=== PATIENT | male | born 1940 | race Caucasian/White ===

== ENCOUNTER 2025-06-04 18:50 | Emergency (ER) | payer MEDICARE, OTHER, SELFPAY ==
[2025-06-04] VITALS (9 sets, daily range): BP systolic 103–110; BP diastolic 63–73; PULSE 59–73; RESP 16–37; TEMP 36.4; O2SAT 90–96; BMI 24.0
--- NOTE | 2025-06-04 19:02 | ED_ITS ---
HPI - Fall General Chief Complaint: Fall Stated Complaint: Fall Time Seen by Provider: 06/04/25 19:01 History of Present Illness HPI Narrative: 84-year-old male returned with family from vacation, return flight into [place] earlier today, had 3 glasses of wine earlier this evening, nearly passed out falling into the arms of nearby family member. Did not fall to the ground. No focal neuro findings. No shaking or incontinence symptoms. No history of seizures known. No history of strokes known. Drinks alcohol regularly, multiple drinks each evening per family members at bedside. Related Data Allergies Allergy/AdvReac Type Severity Reaction Status Date / Time Penicillins Allergy Verified 06/04/25 18:57 Exam Narrative Exam Narrative: GENERAL: Well-developed patient, in mild distress. Alcohol on breath, slight slurred speech HEAD: Atraumatic. Normocephalic. EYES: Pupils equal round and reactive. Extraocular motions intact. No scleral icterus. No injection or drainage. ENT: Nose without bleeding, purulent drainage. Throat without erythema, tonsillar hypertrophy or exudate. Airway patent. NECK: Trachea midline. Non tender CARDIOVASCULAR: Regular rate and rhythm without murmurs, gallops, or rubs. RESPIRATORY: Clear to auscultation. Breath sounds equal bilaterally. No wheezes, rales, or rhonchi. GASTROINTESTINAL: Abdomen soft, non-tender, nondistended. EXTREMITIES: No edema or joint tenderness. BACK: Nontender without deformity or crepitance. No flank tenderness. NEURO: AOx3. Motor functions grossly nonfocal. SKIN: No rash or erythema of visible areas Initial Vital Signs Initial Vital Signs: Vital Signs Pulse Oximetry 92 06/04/25 18:55 Course Orders Ordered: ED Orders 06/04/25 19:00 Complete Blood Count AUTO DIFF Stat Comprehensive Metabolic Panel Stat D Dimer Stat Ethanol (ETOH) Stat Lipase Stat Magnesium Stat NT-proBNP (BNP-Adult 18+) Stat Troponin I Stat 06/04/25 19:16 XR chest 1V Stat EKG-12 Lead Stat 06/04/25 19:19 CT cervical spine wo con Stat CT head/brain wo con Stat 06/04/25 19:39 CT angio chest abdomen pelvis Stat Discontinued Medications Sodium Chloride (Normal Saline 0.9%) 1,000 mls @ 1,000 mls/hr IV BOLUS ONE Stop: 06/04/25 20:39 Last Infusion: 06/04/25 21:53 Dose: Infused Documented By: Admin: 06/04/25 19:54 Dose: 1,000 mls/hr Documented By: SHRUTHI Vital Signs Vital signs: Vital Signs - 8 hr 06/04/25 18:55 06/04/25 18:56 06/04/25 18:56 Temperature 97.5 F L Pulse Rate 72 Respiratory Rate 16 Blood Pressure 110/73 110/73 Pulse Oximetry 92 93 Oxygen Delivery Method Room Air 06/04/25 18:56 06/04/25 19:00 06/04/25 19:00 Temperature Pulse Rate 68 63 Respiratory Rate 18 Blood Pressure 108/71 Pulse Oximetry 91 90 L Oxygen Delivery Method 06/04/25 19:30 06/04/25 19:30 06/04/25 20:00 Temperature Pulse Rate 63 59 L Respiratory Rate 32 H 30 H Blood Pressure 103/68 Pulse Oximetry 93 90 L Oxygen Delivery Method 06/04/25 20:30 06/04/25 21:00 06/04/25 21:30 Temperature Pulse Rate 73 62 65 Respiratory Rate 37 H 18 26 H Blood Pressure Pulse Oximetry 90 L 91 92 Oxygen Delivery Method 06/04/25 21:58 Temperature Pulse Rate 70 Respiratory Rate 18 Blood Pressure 110/63 Pulse Oximetry 96 Oxygen Delivery Method Room Air MDM - Fall Lab Data Attestation: I reviewed the patient's lab results. Lab results narrative: White blood cell count 6100, hemoglobin 15.9, platelets adequate. Glucose 103. Normal renal function, electrolytes. Serum CO2 15 decreased. Liver functions and lipase normal. Blood alcohol level 263 noted from 7:00 p.m. draw. Troponin negative/unmeasurable. 06/04/25 19:00 06/04/25 19:00 Labs: Lab Results 06/04/25 Range/Units 19:00 WBC 6.1 (4.5-11.0) X10^3/uL RBC 4.82 (4.5-5.9) X10^6/uL Hgb 15.9 (13.5-17.5) g/dL Hct 47.1 (41-53) % MCV 97.7 (80-100) fL MCH 33.0 (26-34) PG MCHC 33.8 (30-36) % RDW 14.4 (11.6-14.8) % Plt Count 180 (150-400) X10^3/uL Neut % (Auto) 61.0 (50-75) % Lymph % (Auto) 24.8 L (25-40) % [place] % (Auto) 10.5 (3-14) % Eos % (Auto) 3.1 (2-4) % Baso % (Auto) 0.6 (0-2) % Neut # (Auto) 3700 (4594-8555) /uL Lymph # (Auto) 1500 (6977-9893) /uL [place] # (Auto) 600 (0-900) /uL Eos # (Auto) 200 (0-450) /uL Baso # (Auto) 0 (0-100) /uL D-Dimer 297 (<500) ng/ml Sodium 140 (137-145) mmol/L Potassium 4.2 (3.4-5.1) mmol/L Chloride 109 H (98-107) mmol/L Carbon Dioxide 15 L (22-32) mmol/L BUN 18 (9-20) mg/dL Creatinine 1.01 (0.66-1.25) mg/dL Estimated GFR > 60 (>60) mL/min BUN/Creatinine Ratio 17.8 (6-22) Glucose 103 H (70-99) mg/dL Calcium 9.3 (8.4-10.2) mg/dL Magnesium 2.1 (1.6-2.3) mg/dL Total Bilirubin 1.1 (0.2-1.3) mg/dL AST 31 (17-59) IU/L ALT 25 (<50) IU/L Alkaline Phosphatase 71 (38-126) U/L Troponin I < 0.012 (0.01-0.034) ng/mL NT-Pro-B Natriuret Pep 47 (<450) pg/mL Total Protein 7.4 (6.3-8.2) g/dL Albumin 4.3 (3.5-5.0) g/dL Globulin 3.1 (1.7-4.1) g/dL Albumin/Globulin Ratio 1.4 (1.0-2.8) Lipase 85 (23-300) U/L Ethyl Alcohol 263 H (<10) mg/dL Imaging Data Chest x-ray: Radiologist's Impression: [address] [address] XRay Report Signed Patient: Osorio Gerber MR#: [id number] : 1940 Acct:[id number] Age/Sex: 84 / M Date of Service: 06/04/25 Loc: ED Accession Number: [id number] Procedure: XR chest 1V Ordering Provider: Dajuan Curry MD PROCEDURE: XR CHEST 1V INDICATIONS: syncope TECHNIQUE: One view of the chest was acquired. COMPARISON: None. FINDINGS: Surgical changes and devices: None. Lungs and pleura: Lungs are clear. No pleural effusions or pneumothorax. Mediastinum: Mediastinal contours appear normal. Heart size is normal. Bones and chest wall: No suspicious bony lesions. Overlying soft tissues appear unremarkable. IMPRESSION: No acute cardiopulmonary abnormality is seen. Dictated by: Leo Cummings M.D. on 06/04/2025 at 19:48 Approved by: Leo Cummings M.D. on 06/04/2025 at 19:48 CT scan - head: Radiologist's Impression: [place] [address] CT Scan Report Signed Patient: Osorio Gerber MR#: [id number] : 1940 Acct:[id number] Age/Sex: 84 / M Date of Service: 06/04/25 Loc: ED Accession Number: [id number] Procedure: CT head/brain wo con Ordering Provider: Dajuan Curry MD PROCEDURE: CT HEAD/BRAIN WO CON INDICATIONS: syncope, slow speech TECHNIQUE: Noncontrast 4.5 mm thick angled axial sections acquired from the foramen magnum to the vertex, with coronal and sagittal reformats. For radiation dose reduction, the following was used: automated exposure control, adjustment of mA and/or kV according to patient size. COMPARISON: None. FINDINGS: Image quality: Diagnostic. CSF spaces: Basal cisterns are patent. No extra-axial fluid collections. The ventricles are symmetric in size and shape. Brain: No intracranial bleeds or mass effect. There is cerebral volume loss, with resultant ventricular and sulcal prominence. There are periventricular and deep white matter chronic small vessel ischemic changes. There is intracranial internal carotid artery atherosclerosis. Skull and face: Calvarium and visualized facial bones appear intact, without suspicious lesions. Sinuses: Visualized sinuses and mastoids are clear. IMPRESSION: No acute intracranial pathology. Dictated by: Leo Cummings M.D. on 06/04/2025 at 20:15 Approved by: Leo Cummings M.D. on 06/04/2025 at 20:16 CT - cervical spine: Radiologist's Impression: [address] [address] [address] Scan Report Signed Patient: Osorio Gerber MR#: [id number] : 1940 Acct:[id number] Age/Sex: 84 / M Date of Service: 06/04/25 Loc: ED Accession Number: [id number] Procedure: CT cervical spine wo con Ordering Provider: Dajuan Curry MD PROCEDURE: CT CERVICAL SPINE WO CON INDICATIONS: syncope TECHNIQUE: Noncontrast 3 mm thick sections acquired from the skull base to the T4 level. Sagittal and coronal reformats were then constructed. For radiation dose reduction, the following was used: automated exposure control, adjustment of mA and/or kV according to patient size. COMPARISON: None. FINDINGS: Image quality: Excellent. Bones: No fractures or dislocations. Visualized superior ribs are intact. Severe multilevel degenerative disc disease and facet arthropathy. Soft tissues: Prevertebral soft tissues are normal in thickness. No paravertebral hematomas. No apical pneumothoraces. IMPRESSION: No displaced fracture or traumatic subluxation. Dictated by: Aba Saunders M.D. on 06/04/2025 at 20:13 Approved by: Aba Saunders M.D. on 06/04/2025 at 20:16 CT angiogram chest abdomen and pelvis: Radiologist's Impression: Osorio Gerber??84??M??1940 ? Allergy/Adv: Penicillins [address] [address] [address] Scan Report Signed Patient: Osorio Gerber MR#: [id number] : 1940 Acct:[id number] Age/Sex: 84 / M Date of Service: 06/04/25 Loc: ED Accession Number: [id number] Procedure: CT angio chest abdomen pelvis Ordering Provider: Dajuan Curry MD PROCEDURE: CT ANGIO CHEST ABDOMEN PELVIS INDICATIONS: syncope, back pain TECHNIQUE: Precontrast 5 mm thick sections acquired from the lung apices to the iliac crests. After the administration of intravenous contrast, 2.5 mm thick sections again acquired from the lung apices to the iliac crests. Maximum intensity projection (MIP) oblique sagittal and coronal reformats were then acquired. For radiation dose reduction, the following was used: automated exposure control. COMPARISON: None. FINDINGS: Image quality: Diagnostic. AORTA: No aortic aneurysm. No acute aortic syndrome. CHEST: Lower Neck: No enlarged lymph nodes. Thyroid: No thyroid nodules which require sonographic evaluation. Axillae: No enlarged lymph nodes. Chest Wall: Unremarkable. Lungs and Pleura: No pneumothorax or pleural effusions. No consolidation or suspicious nodules. Heart: Heart size is normal. No pericardial effusion. Thoracic Vessels: Pulmonary arteries demonstrate normal size. Mediastinum and [place]: No enlarged lymph nodes. Esophagus: No wall thickening. No hiatal hernia. ABDOMEN: Liver: 1.7 centimeter hyperattenuating lesion at the inferior margin of the liver, possibly a flash filling hemangioma. Additional subcentimeter lesions which are hypoattenuating and too small to characterize. Gallbladder: No radiopaque gallstones or wall thickening. Biliary ducts: No biliary dilation. Pancreas: No ductal dilation. Spleen: Size is within normal limits. Adrenal Glands: No adrenal nodules. Kidneys and Ureters: No hydronephrosis. No solid mass. No complex renal cystic lesion which requires follow up. Stomach and Bowel: Normal colonic caliber, without significant wall thickening. Normal appendix. Peritoneum: No abnormal intraperitoneal fluid. No free air. Ventral Wall: No hernia. Abdominal Nodes: No retroperitoneal or mesenteric adenopathy by size criteria. Vessels: Inferior vena cava is normal in size. PELVIS: Pelvic Organs: Unremarkable. Bladder: Distended. Pelvic Nodes: No enlarged lymph nodes. Miscellaneous: No inguinal hernias are seen. Bones: Severe degenerative changes in the lumbar and cervical spine. No aggressive osseous lesion or fracture. IMPRESSION: No acute abnormality. No aortic aneurysm. Indeterminate liver lesion. Further evaluation with routine MRI with contrast recommended to ensure benignity. Dictated by: Aba Saunders M.D. on 06/04/2025 at 20:38 Approved by: Aba Saunders M.D. on 06/04/2025 at 20:48 ECG Data Attestation: I personally reviewed and interpreted this ECG as follows: Interpretation: 2120, normal sinus rhythm with rate of 60, no obvious ST segment elevation or depression changes. ID 178, QRS 92, QTC 448. MDM Narrative Medical decision making narrative: 84-year-old male with near syncopal episode in context of recent travel from out of [facility] [place] [facility] earlier today. Recent alcohol use, daily alcohol use. No known trauma to head/face, but fell backwards into the arms of nearby family member, altered gait noted. Labs pending. CT head, C-spine. CTA chest abdomen and pelvis ordered. DDx consider alcohol intoxication, could have other causes of near syncopal episode, recent flight travel from out of state noted, consider PE, aortic dissection, ACS, PE, occult sepsis, other. EKG showed sinus rhythm, no obvious ischemic changes. Chest x-ray showed no acute changes, see radiology report. Lab data: White blood cell count 6100, hemoglobin 15.9, platelets adequate. Glucose 103. Normal renal function, electrolytes. Serum CO2 15 decreased. Liver functions and lipase normal. Blood alcohol level 263 noted from 7:00 p.m. draw. Troponin negative/unmeasurable. CT head, no acute changes. See radiology report. CT cervical spine, no acute changes. See radiology report. CT angiogram chest abdomen and pelvis without acute changes. See radiology report. Observed further in the emergency department, able to ambulate. /daughter at bedside thought that they could take him home, single step entry way to daughter's home for , no internal steps to navigate, home help with moving him to bed. Home observation further for now. Discharged home with family. Discharge Plan Departure Patient Disposition: Home Clinical Impression: Near syncope, Alcohol intoxication Instructions: DI for Syncope in Adults (Fainting) Activity Restrictions/Additional Instructions: Near-syncope almost passing out episode, recent alcohol use. Alcohol level [address] scan head, cervical spine, chest, abdomen, pelvis showed no acute changes. EKG and blood testing unrevealing besides elevated alcohol level. Symptoms improved while he is in the emergency department, able to ambulate steadily. Discharged home with family. Encouraged not to drink alcohol. Recheck advised with your regular doctor early next week. Return to this/nearest emergency department for any change worsening symptoms or any concerns prior. Stand Alone Forms: Patient Portal/API
--- NOTE | 2025-06-04 19:16 | DI.RAD.S_ITS ---
PROCEDURE: XR CHEST 1V INDICATIONS: syncope TECHNIQUE: One view of the chest was acquired. COMPARISON: None. FINDINGS: Surgical changes and devices: None. Lungs and pleura: Lungs are clear. No pleural effusions or pneumothorax. Mediastinum: Mediastinal contours appear normal. Heart size is normal. Bones and chest wall: No suspicious bony lesions. Overlying soft tissues appear unremarkable. IMPRESSION: No acute cardiopulmonary abnormality is seen. Dictated by: Leo Cummings M.D. on 06/04/2025 at 19:48 Approved by: Leo Cummings M.D. on 06/04/2025 at 19:48
--- NOTE | 2025-06-04 19:19 | DI.CT.S_ITS ---
PROCEDURE: CT CERVICAL SPINE WO CON INDICATIONS: syncope TECHNIQUE: Noncontrast 3 mm thick sections acquired from the skull base to the T4 level. Sagittal and coronal reformats were then constructed. For radiation dose reduction, the following was used: automated exposure control, adjustment of mA and/or kV according to patient size. COMPARISON: None. FINDINGS: Image quality: Excellent. Bones: No fractures or dislocations. Visualized superior ribs are intact. Severe multilevel degenerative disc disease and facet arthropathy. Soft tissues: Prevertebral soft tissues are normal in thickness. No paravertebral hematomas. No apical pneumothoraces. IMPRESSION: No displaced fracture or traumatic subluxation. Dictated by: Aba Saunders M.D. on 06/04/2025 at 20:13 Approved by: Aba Saunders M.D. on 06/04/2025 at 20:16
--- NOTE | 2025-06-04 19:19 | DI.CT.S_ITS ---
PROCEDURE: CT HEAD/BRAIN WO CON INDICATIONS: syncope, slow speech TECHNIQUE: Noncontrast 4.5 mm thick angled axial sections acquired from the foramen magnum to the vertex, with coronal and sagittal reformats. For radiation dose reduction, the following was used: automated exposure control, adjustment of mA and/or kV according to patient size. COMPARISON: None. FINDINGS: Image quality: Diagnostic. CSF spaces: Basal cisterns are patent. No extra-axial fluid collections. The ventricles are symmetric in size and shape. Brain: No intracranial bleeds or mass effect. There is cerebral volume loss, with resultant ventricular and sulcal prominence. There are periventricular and deep white matter chronic small vessel ischemic changes. There is intracranial internal carotid artery atherosclerosis. Skull and face: Calvarium and visualized facial bones appear intact, without suspicious lesions. Sinuses: Visualized sinuses and mastoids are clear. IMPRESSION: No acute intracranial pathology. Dictated by: Leo Cummings M.D. on 06/04/2025 at 20:15 Approved by: Leo Cummings M.D. on 06/04/2025 at 20:16
[2025-06-04 19:24] LABS: Add Manual Diff / Slide Review NO; Hematocrit 47.1 % (41-53); Hemoglobin 15.9 g/dL (13.5-17.5); Lymphocytes Absolute Auto 1500 /uL (1100-4500); Mean Corpuscular HGB Conc 33.8 % (30-36); Mean Corpuscular Hemoglobin 33.0 PG (26-34); Mean Corpuscular Volume 97.7 fL (80-100); Platelet Count 180 X10^3/uL (150-400)
[2025-06-04 19:29] LABS: Alanine Aminotransferase 25 IU/L (<50); Albumin 4.3 g/dL (3.5-5.0); Albumin Globulin Ratio 1.4 (1.0-2.8); Alkaline Phosphatase 71 U/L (38-126); Blood Urea Nitrogen 18 mg/dL (9-20); Calcium 9.3 mg/dL (8.4-10.2); Carbon Dioxide 15 mmol/L (22-32); Chloride 109 mmol/L (98-107); Estimated Glomerular Filt Rate > 60 mL/min (>60); Globulin 3.1 g/dL (1.7-4.1); Glucose 103 mg/dL (70-99); HEMOLYSIS 16 (0-50); Lipase 85 U/L (23-300); Magnesium 2.1 mg/dL (1.6-2.3); Potassium 4.2 mmol/L (3.4-5.1); Sodium 140 mmol/L (137-145); Total Protein 7.4 g/dL (6.3-8.2)
--- NOTE | 2025-06-04 19:39 | DI.CT.S_ITS ---
PROCEDURE: CT ANGIO CHEST ABDOMEN PELVIS INDICATIONS: syncope, back pain TECHNIQUE: Precontrast 5 mm thick sections acquired from the lung apices to the iliac crests. After the administration of intravenous contrast, 2.5 mm thick sections again acquired from the lung apices to the iliac crests. Maximum intensity projection (MIP) oblique sagittal and coronal reformats were then acquired. For radiation dose reduction, the following was used: automated exposure control. COMPARISON: None. FINDINGS: Image quality: Diagnostic. AORTA: No aortic aneurysm. No acute aortic syndrome. CHEST: Lower Neck: No enlarged lymph nodes. Thyroid: No thyroid nodules which require sonographic evaluation. Axillae: No enlarged lymph nodes. Chest Wall: Unremarkable. Lungs and Pleura: No pneumothorax or pleural effusions. No consolidation or suspicious nodules. Heart: Heart size is normal. No pericardial effusion. Thoracic Vessels: Pulmonary arteries demonstrate normal size. Mediastinum and [place]: No enlarged lymph nodes. Esophagus: No wall thickening. No hiatal hernia. ABDOMEN: Liver: 1.7 centimeter hyperattenuating lesion at the inferior margin of the liver, possibly a flash filling hemangioma. Additional subcentimeter lesions which are hypoattenuating and too small to characterize. Gallbladder: No radiopaque gallstones or wall thickening. Biliary ducts: No biliary dilation. Pancreas: No ductal dilation. Spleen: Size is within normal limits. Adrenal Glands: No adrenal nodules. Kidneys and Ureters: No hydronephrosis. No solid mass. No complex renal cystic lesion which requires follow up. Stomach and Bowel: Normal colonic caliber, without significant wall thickening. Normal appendix. Peritoneum: No abnormal intraperitoneal fluid. No free air. Ventral Wall: No hernia. Abdominal Nodes: No retroperitoneal or mesenteric adenopathy by size criteria. Vessels: Inferior vena cava is normal in size. PELVIS: Pelvic Organs: Unremarkable. Bladder: Distended. Pelvic Nodes: No enlarged lymph nodes. Miscellaneous: No inguinal hernias are seen. Bones: Severe degenerative changes in the lumbar and cervical spine. No aggressive osseous lesion or fracture. IMPRESSION: No acute abnormality. No aortic aneurysm. Indeterminate liver lesion. Further evaluation with routine MRI with contrast recommended to ensure benignity. Dictated by: Aba Saunders M.D. on 06/04/2025 at 20:38 Approved by: Aba Saunders M.D. on 06/04/2025 at 20:48
[2025-06-04 19:40] LABS: NT-proBNP (BNP-Adult 18+) 47 pg/mL (<450); Troponin I < 0.012 ng/mL (0.01-0.034)
[2025-06-04] MEDS: SODIUM CHLORIDE 0.9% 1,000 ML 1000 ML IV (19:54)
[2025-06-04 20:58] LABS: Ethanol (ETOH) 263 mg/dL (<10)
--- NOTE | 2025-06-04 21:21 | EKG_ITS ---
[facility] [address], [place] [address] Test Date: 2025-06-04 Pat [facility] Department[facility] Room: Gender: Male [employer]: JABARI FRANZ : 1940 Requested By: Order Number: [id number] Reading MD: Luis M Suh Measurements Intervals [place] Rate: 60 P: 49 UT: 178 QRS: 40 QRSD: 92 T: 12 QT: 448 QTc: 448 Interpretive Statements Normal sinus rhythm Electronically Signed On 06-05-2025 8:00:45 PST by Luis M Suh
--- NOTE | 2025-06-04 22:01 | PC.NURSE ---
pt has been drinking water and tolerating well, able to walk without assistance gait steady
== END 2025-06-04 22:10 | disposition home or self-care (01) ==
PROVIDERS: Emergency Provider Emergency Medicine
DX: R55 Syncope and collapse (principal); F10.129 Alcohol abuse with intoxication, unspecified; Y90.8 Blood alcohol level of 240 mg/100 ml or more
CPT/HCPCS: 36415; 70450; 71045; 71275; 72125; 74174; 80053; 80320; 83690; 83735; 83880; 84484; 85025; 85379; 93005; 96360; 96361; 99284; J7030; Q9967